=== PATIENT | female | born 1995 | race Caucasian/White ===

== ENCOUNTER 2024-08-10 14:22 | Inpatient (IN) | payer OTHER ==
[2024-08-10 14:31] VITALS: BMI 25.6
[2024-08-10] MEDS ORDERED: ACETAMINOPHEN INJECTION 100 ML ONE (15:23)
[2024-08-10 15:24] LABS: ABSOLUTE IMMATURE GRANULOCYTES 0.06 x10^3/uL (0.0-0.031); BASOPHILS # 0.03 x10^3/uL (0.01-0.08); EOSINOPHIL % 0.3 % (0.7-5.8); EOSINOPHILS # 0.05 x10^3/uL (0.04-0.36); HEMATOCRIT 33.4 % (34.1-44.9); HEMOGLOBIN 10.9 g/dL (11.2-15.7); MCHC 32.6 g/dl (32.2-35.5); MONOCYTE # 1.69 x10^3/uL (0.24-0.86); MONOCYTE % 11.7 % (4.7-12.5); RDW 13.1 % (12.1-16.5)
[2024-08-10] MEDS: SODIUM CHLORIDE 1,000 ML IV STA (15:38)
[2024-08-10] MEDS: ACETAMINOPHEN 1000 MG/100 ML BAG IVPB ONE (15:38)
[2024-08-10 15:54] LABS: POTASSIUM 3.6 mmol/L (3.5-5.1)
[2024-08-10 15:57] LABS: ALBUMIN 2.9 g/dl (3.4-5.0); BLOOD UREA NITROGEN 13.2 mg/dL (7-18); CALCIUM 8.6 mg/dL (8.5-10.1)
[2024-08-10 16:00] LABS: CREATININE 0.6 mg/dL (0.55-1.3)
[2024-08-10 16:02] LABS: BILIRUBIN,TOTAL 0.2 mg/dL (0.2-1); TOT PROT 6.3 g/dl (6.4-8.2)
[2024-08-10 16:14] LABS: MEAN PLT VOLUME 9.9 fl (9.4-12.3); PLATELET COUNT 277 x10^3/uL (182-369)
[2024-08-10 16:38] LABS: EPI CELLS 14 /uL (0-25.1); HCG,QUALITATIVE URINE Negative; HYALINE CASTS 3 /uL (0-3.1); PH,URINE 6.5 (5.0-8.0); URINE APPEARANCE CLEAR; URINE BILIRUBIN NEGATIVE (NEGATIVE); URINE COLOR YELLOW; URINE GLUCOSE (UA) NEGATIVE (NEGATIVE); URINE KETONE 1+ (NEGATIVE); URINE LEUK ESTERASE TRACE (NEGATIVE); URINE NITRITE POSITIVE (NEGATIVE); URINE PROTEIN 2+ (NEGATIVE); URINE WBC 256 /uL (0-25.8)
[2024-08-10] MEDS ORDERED: CEFTRIAXONE 1 G/50 ML PREMIX 50 ML IVPB ONE (17:35)
[2024-08-10] MEDS ORDERED: KETOROLAC TROMETHAMINE 15 MG/ML VIAL ONE (17:35)
[2024-08-10] MEDS: KETOROLAC TROMETHAMINE 15 MG/ML VIAL IVPUSH ONE (18:04)
[2024-08-10] MEDS: SODIUM CHLORIDE 1,000 ML IV SCH (20:23)
[2024-08-10] MEDS ORDERED: ACETAMINOPHEN 325 MG TABLET (FP) ONE (20:38)
[2024-08-10] MEDS: ACETAMINOPHEN 325 MG TABLET (FP) PO PRN (20:42)
[2024-08-10 22:35] LABS: URINE BACTERIA 774.8 /uL (0-1359); URINE RBC 100.6 /uL (0-23.9)
[2024-08-10] MEDS: HEPARIN NA (PORCINE) 5,000 UNITS/ML 1ML VIAL SQ SCH (23:13)
[2024-08-11] MEDS: morphine SULFATE 4 MG/ML VIAL IVPUSH PRN ×2 (01:03→11:47)
[2024-08-11 08:03] LABS: HEMATOCRIT 31.2 % (34.1-44.9); MCHC 32.1 g/dl (32.2-35.5); MEAN PLT VOLUME 9.4 fl (9.4-12.3); PLATELET COUNT 258 x10^3/uL (182-369); RDW 13.4 % (12.1-16.5)
[2024-08-11] MEDS: LACTATED RINGERS SOLUTION 1,000 ML/1,000 ML INFUS.BAG IV SCH (08:21)
[2024-08-11 08:22] LABS: POTASSIUM 3.6 mmol/L (3.5-5.1)
[2024-08-11 08:40] LABS: CALCIUM 8.4 mg/dL (8.5-10.1)
[2024-08-11 08:41] LABS: ALBUMIN 2.5 g/dl (3.4-5.0); BLOOD UREA NITROGEN 6.8 mg/dL (7-18)
[2024-08-11 08:44] LABS: CREATININE 0.6 mg/dL (0.55-1.3)
[2024-08-11 08:45] LABS: BILIRUBIN,TOTAL 0.2 mg/dL (0.2-1); TOT PROT 5.5 g/dl (6.4-8.2)
[2024-08-11] MEDS ORDERED: KETOROLAC TROMETHAMINE 15 MG/ML VIAL IVPUSH PRN (10:48)
[2024-08-11] MEDS: CEFTRIAXONE 1 G/50 ML PREMIX 50 ML IVPB SCH (11:41)
[2024-08-11] MEDS: POLYETHYLENE GLYCOL (HEALTHYLAX) 3350 17 GM PACKET PO SCH (13:11)
[2024-08-11] MEDS: SIMETHICONE 80 MG TAB.CHEW (FP) PO PRN (14:03)
[2024-08-11] MEDS: ACETAMINOPHEN 325 MG TABLET (FP) PO PRN (14:33)
[2024-08-11] MEDS: KETOROLAC TROMETHAMINE 15 MG/ML VIAL IVPUSH PRN (22:04)
[2024-08-12] MEDS: DOCUSATE SODIUM 100 MG CAPSULE (FP) PO PRN (04:38)
[2024-08-12 08:07] LABS: HEMATOCRIT 30.9 % (34.1-44.9); HEMOGLOBIN 9.8 g/dL (11.2-15.7); MCHC 31.7 g/dl (32.2-35.5); MEAN CELL VOLUME 93.1 fl (79.4-94.8); MEAN PLT VOLUME 9.5 fl (9.4-12.3); PLATELET COUNT 293 x10^3/uL (182-369); RDW 13.5 % (12.1-16.5)
[2024-08-12 08:29] LABS: POTASSIUM 4.4 mmol/L (3.5-5.1)
[2024-08-12 08:41] LABS: CALCIUM 8.3 mg/dL (8.5-10.1)
[2024-08-12 08:43] LABS: ALBUMIN 2.4 g/dl (3.4-5.0)
[2024-08-12 08:45] LABS: CREATININE 0.5 mg/dL (0.55-1.3)
[2024-08-12 08:47] LABS: BILIRUBIN,TOTAL 0.3 mg/dL (0.2-1); TOT PROT 5.6 g/dl (6.4-8.2)
[2024-08-12] MEDS: ERTAPENEM SODIUM 1 GM in SODIUM CHLORIDE 50 ML IVPB SCH (10:59)
[2024-08-12] MEDS: KETOROLAC TROMETHAMINE 15 MG/ML VIAL IVPUSH PRN (17:47)
[2024-08-13] MEDS: morphine CARPU-JECT 2 MG/1 ML DISP.SYRIN IVPUSH ONE (01:01)
[2024-08-13] MEDS: ACETAMINOPHEN 1000 MG/100 ML BAG IVPB ONE (01:44)
[2024-08-13] MEDS: MAG HYDROX/AL HYDROX/SIMETH 30 ML UNIT-DOSE CUP PO ONE (02:13)
[2024-08-13] MEDS: FAMOTIDINE 20 MG/50 ML IVPB 20 MG/50 ML MG IVPB ONE ×2 (02:15→23:06)
[2024-08-13 09:11] LABS: HEMATOCRIT 33.1 % (34.1-44.9); HEMOGLOBIN 10.7 g/dL (11.2-15.7); MCHC 32.3 g/dl (32.2-35.5); MEAN CELL VOLUME 93.2 fl (79.4-94.8); MEAN PLT VOLUME 9.2 fl (9.4-12.3); PLATELET COUNT 334 x10^3/uL (182-369); RDW 13.4 % (12.1-16.5)
[2024-08-13 09:25] LABS: POTASSIUM 4.5 mmol/L (3.5-5.1)
[2024-08-13 09:27] LABS: ALBUMIN 2.3 g/dl (3.4-5.0); BLOOD UREA NITROGEN 9.5 mg/dL (7-18); CALCIUM 8.3 mg/dL (8.5-10.1)
[2024-08-13 09:31] LABS: CREATININE 0.5 mg/dL (0.55-1.3)
[2024-08-13 09:32] LABS: BILIRUBIN,TOTAL 0.2 mg/dL (0.2-1); TOT PROT 5.5 g/dl (6.4-8.2)
[2024-08-13] MEDS ORDERED: KETOROLAC TROMETHAMINE 15 MG/ML VIAL IVPUSH PRN (18:58)
[2024-08-13] MEDS: MAG HYDROX/AL HYDROX/SIMETH 30 ML UNIT-DOSE CUP PO PRN (23:06)
[2024-08-14] MEDS: KETOROLAC TROMETHAMINE 15 MG/ML VIAL IVPUSH ONE (02:19)
[2024-08-14 08:19] LABS: MCHC 32.4 g/dl (32.2-35.5); MEAN CELL VOLUME 91.1 fl (79.4-94.8); MEAN PLT VOLUME 9.1 fl (9.4-12.3); PLATELET COUNT 449 x10^3/uL (182-369); RDW 12.9 % (12.1-16.5)
[2024-08-14 08:35] LABS: POTASSIUM 4.6 mmol/L (3.5-5.1)
[2024-08-14 08:52] LABS: BLOOD UREA NITROGEN 12.4 mg/dL (7-18); CALCIUM 8.8 mg/dL (8.5-10.1); MAGNESIUM 2.3 mg/dL (1.8-2.4)
[2024-08-14 08:55] LABS: CREATININE 0.5 mg/dL (0.55-1.3)
[2024-08-14 08:56] LABS: BILIRUBIN,TOTAL 0.2 mg/dL (0.2-1); TOT PROT 6.5 g/dl (6.4-8.2)
[2024-08-14 09:16] LABS: ALBUMIN 2.8 g/dl (3.4-5.0)
[2024-08-14] MEDS: HEPARIN NA (PORCINE) 5,000 UNITS/ML 1ML VIAL SQ SCH (09:47)
[2024-08-15 07:21] LABS: HEMATOCRIT 40.7 % (34.1-44.9); HEMOGLOBIN 12.9 g/dL (11.2-15.7); MCHC 31.7 g/dl (32.2-35.5); MEAN CELL VOLUME 93.1 fl (79.4-94.8); MEAN PLT VOLUME 8.7 fl (9.4-12.3); PLATELET COUNT 527 x10^3/uL (182-369); RDW 12.9 % (12.1-16.5)
[2024-08-15 07:51] LABS: BLOOD UREA NITROGEN 13.2 mg/dL (7-18); CALCIUM 9.6 mg/dL (8.5-10.1)
[2024-08-15 07:52] LABS: MAGNESIUM 2.5 mg/dL (1.8-2.4)
[2024-08-15 07:55] LABS: CREATININE 0.6 mg/dL (0.55-1.3)
[2024-08-15 07:56] LABS: BILIRUBIN,TOTAL 0.3 mg/dL (0.2-1)
[2024-08-15] MEDS: traMADol HCL 50 MG TABLET PO PRN (13:35)
[2024-08-16] MEDS: PRAMIPEXOLE DIHYDROCHLORIDE 0.125 MG TABLET PO SCH (00:05)
[2024-08-16] MEDS: DIVALPROEX NA *ER* EXTEND REL 250 MG TABLET.SA PO SCH (00:38)
[2024-08-16] MEDS: ONDANSETRON 4 MG/2 ML VIAL IVPUSH PRN (08:09)
[2024-08-16 08:10] LABS: HEMATOCRIT 40.3 % (34.1-44.9); HEMOGLOBIN 13.1 g/dL (11.2-15.7); MCHC 32.5 g/dl (32.2-35.5); MEAN CELL VOLUME 92.6 fl (79.4-94.8); MEAN PLT VOLUME 8.6 fl (9.4-12.3); PLATELET COUNT 606 x10^3/uL (182-369); RDW 12.8 % (12.1-16.5)
[2024-08-16 08:35] LABS: ALBUMIN 3.3 g/dl (3.4-5.0); BLOOD UREA NITROGEN 18.3 mg/dL (7-18); CALCIUM 9.5 mg/dL (8.5-10.1); MAGNESIUM 2.4 mg/dL (1.8-2.4)
[2024-08-16 08:38] LABS: CREATININE 0.8 mg/dL (0.55-1.3)
[2024-08-16 08:40] LABS: BILIRUBIN,TOTAL 0.2 mg/dL (0.2-1); TOT PROT 7.3 g/dl (6.4-8.2)
[2024-08-16 08:42] LABS: IRON SERUM 72 ug/dL (50-175); TOTAL IRON BINDING CAPACITY 320 ug/dL (250-450)
[2024-08-16 13:59] VITALS: BP 113/83; PULSE 92; RESP 18; TEMP 98.1
== END 2024-08-16 14:10 | disposition home or self-care (01) | DRG 463 ==
LOC: JER 14:22 → JERBED 19:11 → J7W 22:55 → OBSVTOIN 08-14 12:54
PROVIDERS: ADMIT Hospitalist
DX: N10 Acute pyelonephritis (principal); F32.A Depression, unspecified; A49.9 Bacterial infection, unspecified; D64.9 Anemia, unspecified; F17.200 Nicotine dependence, unspecified, uncomplicated; F45.8 Other somatoform disorders; G25.81 Restless legs syndrome; G43.709 Chronic migraine without aura, not intractable, without status migrainosus; G47.00 Insomnia, unspecified; Z16.12 Extended spectrum beta lactamase (ESBL) resistance; Z59.00 Homelessness unspecified; N39.0 Urinary tract infection, site not specified
CPT/HCPCS: 36415; 70551-TC; 71045-TC-FY; 71275-TC; 74177-TC; 76705-TC; 80053; 81003; 82607; 83540; 83550; 83690; 83735; 84443; 84703; 85025; 85027; 87040; 87086; 87186; 87491; 87591; 93005; 93010; 99285-25; G0378; J0131; J1644; Q9967